=== PATIENT | male | born 1965 | race Caucasian/White ===

== ENCOUNTER 2019-10-08 23:01 | Observation (INO) | payer OTHER ==
[~2019-10-08] VITALS: Ht 177.8 cm; Wt 115.4 kg
[~2019-10-08 23:01] MED LIST: ACET325 PO; AMLO10; AMLO5 PO; ASPI81CH PO; Bactrim Ds Tab1 EACH PO; CEPH500 PO; CITA20 PO; CQ-10; CYCL10 PO; Crutch1 EACH MISC; DOXE10; FERR325 PO; FOLI1 PO; GEMF600 PO; HYDCHL12.5 PO; HYDMOR2 PO; HYDR1TAB94 PO; Hydrochloroth12.5 MG PO; IBUP600 PO; LISI5; MINO50 PO; OXYACE5T PO; Prinivil10 MG PO; SINUS RINSE ST1 EACH; THIA100 PO; VARE1 PO; Zofran Odt4 MG SL
[2019-10-08] MEDS ORDERED: AMLO10 PO (23:20)
[2019-10-08] MEDS ORDERED: Catapres0.2 MG PO (23:20)
[2019-10-08] MEDS ORDERED: DOXA4 PO (23:21)
[2019-10-08] MEDS ORDERED: LISI20 PO (23:21)
[2019-10-08 23:24] LABS: BASOPHILS ABSOLUTE AUTO 0.07 K/mm3 (0.00-0.23); BASOPHILS PERCENT AUTO 1 % (0-2); EOSINOPHILS PERCENT AUTO 4 % (0-6); Hematocrit 47.8 % (37.0-53.0); Hemoglobin 16.1 g/dL (13.5-17.5); IMMATURE GRAN ABSOLUTE AUTO 0.03 K/mm3 (0.00-0.10); IMMATURE GRAN PERCENT AUTO 0 % (0-1); LYMPHOCYTES ABSOLUTE AUTO 2.09 K/mm3 (0.84-5.20); LYMPHOCYTES PERCENT AUTO 22 % (21-46); MONOCYTES ABSOLUTE AUTO 0.66 K/mm3 (0.16-1.47); MONOCYTES PERCENT AUTO 7 % (4-13); Mean Corpuscular HGB 29.4 pg (26.0-34.0); Mean Corpuscular HGB Conc 33.7 g/dL (31.5-36.5); Mean Corpuscular Volume 87 fL (80-100); NEUTROPHILS ABSOLUTE AUTO 6.48 K/mm3 (1.96-9.15); NEUTROPHILS PERCENT AUTO 67 % (41-73); Platelet Count 208 K/mm3 (150-400); RDW Coefficient Variation 13.3 % (11.7-14.2); RDW Standard Deviation 42.3 fL (35.1-46.3); Red Blood Cell Count 5.48 M/mm3 (4.30-5.90); White Blood Cell Count 9.73 K/mm3 (4.00-11.30)
[2019-10-08 23:58] LABS: Alanine Aminotransfer (ALT/SGP 32 U/L (12-78); Albumin, Blood 3.2 g/dL (3.4-5.0); Albumin/Globulin Ratio 0.8 (0.8-1.8); Alk Phos 97 U/L (50-136); Anion Gap 5 mmol/L (6-16); Aspartate Aminotrans (AST/SGOT 23 U/L (12-37); Bilirubin, Total 0.3 mg/dL (0.1-1.0); Blood Urea Nitrogen 23 mg/dL (8-24); CO2, Blood 30 mmol/L (21-32); Calcium, Blood 8.9 mg/dL (8.5-10.1); Chloride, Blood 106 mmol/L (98-108); Creatinine, Blood 1.44 mg/dL (0.60-1.20); Glomerular Filtration Rate 54 (60-); Glucose, Blood 118 mg/dL (70-99); Potassium, Blood 3.4 mmol/L (3.5-5.5); Sodium, Blood 141 mmol/L (136-145); Total Protein, Blood 7.2 g/dL (6.4-8.2); Troponin I <0.015 ng/mL (0.000-0.040)
--- NOTE | 2019-10-09 06:32 | NUR ---
PT ADMITTED TO ROOM 359 PER CART FROM ER; REPORT RECEIVED FROM [facility] VIA ER; PT ASSISTED INTO BED VIA SLIDER SHEET X 4 ASSIST. 0661 PT STOOD AT SIDE OF BED WITH THIS NURSE AT SIDE AND VOIDED 200ML CLEAR YELLOW FLUID; PT VOICED HAVING VERTIGO WHILE STANDING AT BEDSIDE; PTS BP HYPERTENSIVE LAYING AND SITTING.
[2019-10-09] MEDS ORDERED: SYMBICORT 16010.2 GM INH (10:47)
[2019-10-09] MEDS ORDERED: ALBU90OI INH (10:47)
[2019-10-09] MEDS ORDERED: Percocet 5-3251 EACH PO (10:48)
[2019-10-09] MEDS ORDERED: ONDA4ODT MM (10:48)
--- NOTE | 2019-10-09 16:25 | NUR ---
SHIFT SUMMARY NESTOR DENIED PAIN THIS SHIFT, BUT COMPLAINED OF LOTS OF DIZZINESS. ABLE TO GET TO BR WITH SBA. BA ON FOR SAFETY. PT SAW FOR JEEVAN MANEUVER, PT STILL DIZZY AFTERWARDS. VERY HTN AT BEGINNING OF SHIFT, AROUND 200/120 BP, WITH BP MEDS, IT DECREASED SIGNFICANTLY. GOT NAUSEA MEDS X1. TOOK MEDS PRESCRIBED. WCTM
--- NOTE | 2019-10-09 22:36 | NUR ---
1950 THIS NURSE REVIEWED AND EDUCATED PATIENT ON IMPORTANCE OF MEDICATION COMPLIANCE AND NEED TO TAKE MEDS ORDERED BY PCP IN FUTURE AND TO NOT JUST QUIT TAKING MEDS BECAUSE YOU PERSONALLY DON'T WANT TO TAKE THEM WITH ACKNOWLEDGEMENT NOTED.
--- NOTE | 2019-10-10 04:50 | NUR ---
SHIFT SUMMARY: 54 Y/O OBESE MALE RESTED COMFORTABLY IN BED; PT DENIES VERTIGO AND WAS ABLE AMBULATE BATHROOM AND BACK WITHOUT ISSUE X 1 STANDBY ASSIST; DENIES PAIN OR NAUSEA; VITAL SIGNS STABLE; THIS NURSE REVIEWED WITH PATIENT NEED TO BE COMPLIANT WITH TAKING HOME MEDS IN FUTURE; BED LOW POSITION WITH CALL LIGHT AT SIDE.
[2019-10-10 05:48] LABS: Bun/Creatinine Ratio 16.4 (12.0-20.0); Calcium, Blood 8.5 mg/dL (8.5-10.1); Creatinine, Blood 1.77 mg/dL (0.60-1.20); Potassium, Blood 3.7 mmol/L (3.5-5.5)
[2019-10-10] MEDS ORDERED: PROAIR DIGIHAL90 MCG INH (14:33)
[2019-10-10] MEDS ORDERED: SYMBICORT 160-4.6 GM INH (14:34)
[2019-10-10] MEDS ORDERED: Percocet 5-3251 EACH PO (14:34)
[2019-10-10] MEDS ORDERED: HYDCHL25 PO (14:34)
[2019-10-10] MEDS ORDERED: MECL25 PO (14:34)
--- NOTE | 2019-10-10 14:44 | NUR ---
Advance Directive Education conducted. Patient already has the AD form so I just talk with patient about the purpose and importance of the AD. I also explain the filing process. Patient tells me he will look over the information with his girlfriend when they return home.
--- NOTE | 2019-10-10 16:00 | NUR ---
PATIENT DISCHARGED TO HOME VIA TAXI FROM [facility]. FOUR WHEEL W[employer]ER DELIVERED TO ROOM BY [facility] PRIOR TO D/C. IV SL REMOVED WITHOUT INCIDENT. PATIENT AWARE THAT HE HAS 5 NEW MEDICATIONS TO BE PICKED UP AT PHARMACY. DENIED DIZZINESS. HAS ALL BELONGINGS.
== END 2019-10-10 15:52 | disposition home or self-care (01) ==
LOC: ER 23:01 → MEDS 23:02
PROVIDERS: Emergency Medicine; Internal Medicine; ADMIT Internal Medicine
DX: R42 Dizziness and giddiness (principal); I12.9 Hypertensive chronic kidney disease with stage 1 through stage 4 chronic kidney disease, or unspecified chronic kidney disease; N18.3 Chronic kidney disease, stage 3 (moderate); H81.10 Benign paroxysmal vertigo, unspecified ear; F32.9 Major depressive disorder, single episode, unspecified; F17.210 Nicotine dependence, cigarettes, uncomplicated; Z91.14 Patient's other noncompliance with medication regimen; Z79.899 Other long term (current) drug therapy
CPT/HCPCS: 36415; 70450; 80048; 80053; 84484; 85025; 93005; 93010; 96361; 96374; 96375; 96376; 97161; 99285-25; A9270; A9270-GY; G0378; J2405; J3360; J7030

== ENCOUNTER → 2020-09-15 | Outpatient (CLI) | payer OTHER | END | disposition home or self-care (01) | LOC: LAB 13:59 | DX: R60.0 Localized edema (principal) ==

== ENCOUNTER 2021-12-13 22:28 | Emergency (ER) | payer OTHER ==
[~2021-12-13] VITALS: Ht 177.8 cm; Wt 113.4 kg
[~2021-12-13 22:28] MED LIST changes: +ALBU90OI INH; +AMLO10 PO; +Catapres0.2 MG PO; +DOXA4 PO; +HYDCHL25 PO; +LISI20 PO; +MECL25 PO; +ONDA4ODT MM; +PROAIR DIGIHAL90 MCG INH; +Percocet 5-3251 EACH PO; +SYMBICORT 160-4.6 GM INH; +SYMBICORT 16010.2 GM INH
[2021-12-13 22:59] LABS: BASOPHILS ABSOLUTE AUTO 0.06 K/mm3 (0.00-0.23); BASOPHILS PERCENT AUTO 1 % (0-2); EOSINOPHILS PERCENT AUTO 4 % (0-6); Hematocrit 46.2 % (37.0-53.0); Hemoglobin 15.5 g/dL (13.5-17.5); IMMATURE GRAN ABSOLUTE AUTO 0.04 K/mm3 (0.00-0.10); IMMATURE GRAN PERCENT AUTO 1 % (0-1); LYMPHOCYTES ABSOLUTE AUTO 1.92 K/mm3 (0.84-5.20); LYMPHOCYTES PERCENT AUTO 22 % (21-46); MONOCYTES PERCENT AUTO 9 % (4-13); Mean Corpuscular HGB 29.4 pg (26.0-34.0); Mean Corpuscular HGB Conc 33.5 g/dL (31.5-36.5); Mean Corpuscular Volume 88 fL (80-100); Mean Platelet Volume 10.4 fL (9.1-12.4); NEUTROPHILS ABSOLUTE AUTO 5.48 K/mm3 (1.96-9.15); NEUTROPHILS PERCENT AUTO 64 % (41-73); Platelet Count 222 K/mm3 (150-400); RDW Coefficient Variation 13.2 % (11.7-14.2); RDW Standard Deviation 42.5 fL (35.1-46.3); Red Blood Cell Count 5.28 M/mm3 (4.30-5.90)
[2021-12-13 23:28] LABS: Albumin, Blood 3.5 g/dL (3.4-5.0); Albumin/Globulin Ratio 0.9 (0.8-1.8); Bilirubin, Total 0.3 mg/dL (0.1-1.0); Bun/Creatinine Ratio 18.1 (12.0-20.0); Calcium, Blood 9.6 mg/dL (8.5-10.1); Creatinine, Blood 1.71 mg/dL (0.60-1.20); Globulin, Blood 3.9 g/dL (2.2-4.0); Potassium, Blood 4.1 mmol/L (3.5-5.5); Total Protein, Blood 7.4 g/dL (6.4-8.2)
== END 2021-12-14 01:36 | disposition home or self-care (01) ==
LOC: ER 22:28
PROVIDERS: Student in an Organized Health Care Education/Training Program
DX: R07.9 Chest pain, unspecified (principal); I10 Essential (primary) hypertension; F17.210 Nicotine dependence, cigarettes, uncomplicated; Z79.899 Other long term (current) drug therapy; Z79.51 Long term (current) use of inhaled steroids
CPT/HCPCS: 36415; 71045; 80053; 83880; 84484; 85025; 93005; 93010; A9270

== ENCOUNTER → 2022-03-13 | Outpatient (CLI) | payer OTHER ==
[2022-03-13 10:33] LABS: BASOPHILS ABSOLUTE AUTO 0.04 K/mm3 (0.00-0.23); BASOPHILS PERCENT AUTO 1 % (0-2); EOSINOPHILS ABSOLUTE AUTO 0.27 K/mm3 (0.00-0.68); EOSINOPHILS PERCENT AUTO 3 % (0-6); Hematocrit 51.7 % (37.0-53.0); Hemoglobin 17.7 g/dL (13.5-17.5); IMMATURE GRAN ABSOLUTE AUTO 0.03 K/mm3 (0.00-0.10); IMMATURE GRAN PERCENT AUTO 0 % (0-1); LYMPHOCYTES ABSOLUTE AUTO 1.64 K/mm3 (0.84-5.20); LYMPHOCYTES PERCENT AUTO 20 % (21-46); MONOCYTES ABSOLUTE AUTO 0.59 K/mm3 (0.16-1.47); MONOCYTES PERCENT AUTO 7 % (4-13); Mean Corpuscular HGB 29.9 pg (26.0-34.0); Mean Corpuscular HGB Conc 34.2 g/dL (31.5-36.5); Mean Corpuscular Volume 87 fL (80-100); Mean Platelet Volume 10.2 fL (9.1-12.4); NEUTROPHILS ABSOLUTE AUTO 5.62 K/mm3 (1.96-9.15); NEUTROPHILS PERCENT AUTO 69 % (41-73); Platelet Count 198 K/mm3 (150-400); RDW Coefficient Variation 13.6 % (11.7-14.2); RDW Standard Deviation 43.2 fL (35.1-46.3); Red Blood Cell Count 5.92 M/mm3 (4.30-5.90); White Blood Cell Count 8.19 K/mm3 (4.00-11.30)
[2022-03-13 10:51] LABS: Albumin, Blood 3.2 g/dL (3.4-5.0); Albumin/Globulin Ratio 0.8 (0.8-1.8); Bilirubin, Total 0.3 mg/dL (0.1-1.0); Bun/Creatinine Ratio 15.2 (12.0-20.0); Calcium, Blood 8.7 mg/dL (8.5-10.1); Creatinine, Blood 1.58 mg/dL (0.60-1.20); Globulin, Blood 4.1 g/dL (2.2-4.0); Potassium, Blood 3.8 mmol/L (3.5-5.5); Total Protein, Blood 7.3 g/dL (6.4-8.2)
== END | disposition home or self-care (01) ==
LOC: LAB SHORT 10:29
PROVIDERS: Physician Assistant Medical
DX: R42 Dizziness and giddiness (principal)
CPT/HCPCS: 80053; 85025

== ENCOUNTER 2023-02-09 11:16 | Emergency (ER) | payer OTHER ==
[~2023-02-09] VITALS: Ht 180.3 cm; Wt 154.2 kg
[2023-02-09 11:49] VITALS: BP 174/112
[2023-02-09 12:20] LABS: BASOPHILS ABSOLUTE AUTO 0.06 K/mm3 (0.00-0.23); BASOPHILS PERCENT AUTO 1 % (0-2); EOSINOPHILS ABSOLUTE AUTO 0.33 K/mm3 (0.00-0.68); EOSINOPHILS PERCENT AUTO 4 % (0-6); Hematocrit 48.7 % (37.0-53.0); Hemoglobin 16.2 g/dL (13.5-17.5); IMMATURE GRAN ABSOLUTE AUTO 0.04 K/mm3 (0.00-0.10); IMMATURE GRAN PERCENT AUTO 0 % (0-1); LYMPHOCYTES ABSOLUTE AUTO 1.42 K/mm3 (0.84-5.20); LYMPHOCYTES PERCENT AUTO 15 % (21-46); MONOCYTES ABSOLUTE AUTO 0.54 K/mm3 (0.16-1.47); MONOCYTES PERCENT AUTO 6 % (4-13); Mean Corpuscular HGB 29.1 pg (26.0-34.0); Mean Corpuscular HGB Conc 33.3 g/dL (31.5-36.5); Mean Corpuscular Volume 88 fL (80-100); Mean Platelet Volume 10.1 fL (9.1-12.4); NEUTROPHILS ABSOLUTE AUTO 6.85 K/mm3 (1.96-9.15); NEUTROPHILS PERCENT AUTO 74 % (41-73); Platelet Count 196 K/mm3 (150-400); RDW Coefficient Variation 13.9 % (11.7-14.2); RDW Standard Deviation 43.9 fL (35.1-46.3); Red Blood Cell Count 5.56 M/mm3 (4.30-5.90); White Blood Cell Count 9.24 K/mm3 (4.00-11.30)
[2023-02-09 12:35] LABS: Albumin, Blood 3.1 g/dL (3.4-5.0); Albumin/Globulin Ratio 0.7 (0.8-1.8); Bilirubin, Total 0.5 mg/dL (0.1-1.0); Bun/Creatinine Ratio 13.7 (12.0-20.0); C-REACTIVE PROTEIN, EXT RANGE 3.18 mg/dL (0.000-0.300); Calcium, Blood 9.3 mg/dL (8.5-10.1); Creatinine, Blood 1.46 mg/dL (0.60-1.20); Globulin, Blood 4.3 g/dL (2.2-4.0); Potassium, Blood 3.4 mmol/L (3.5-5.5); Total Protein, Blood 7.4 g/dL (6.4-8.2)
[2023-02-09] MEDS ORDERED: SULTRIDS PO (13:40)
== END 2023-02-09 13:57 | disposition home or self-care (01) ==
LOC: ER 11:16
PROVIDERS: Physician Assistant
DX: L03.115 Cellulitis of right lower limb (principal); I10 Essential (primary) hypertension; E87.6 Hypokalemia; M71.21 Synovial cyst of popliteal space [Baker], right knee; M71.22 Synovial cyst of popliteal space [Baker], left knee; F17.210 Nicotine dependence, cigarettes, uncomplicated; Z79.899 Other long term (current) drug therapy; Z79.51 Long term (current) use of inhaled steroids
CPT/HCPCS: 80053; 85025; 86140; 93971; 99284-25

== ENCOUNTER → 2023-09-20 | Outpatient (CLI) | payer OTHER ==
[~2023-09-20] MED LIST changes: +SULTRIDS PO
[2023-09-20 12:01] LABS: BASOPHILS ABSOLUTE AUTO 0.07 K/mm3 (0.00-0.23); BASOPHILS PERCENT AUTO 1 % (0-2); EOSINOPHILS PERCENT AUTO 5 % (0-6); Hematocrit 50.9 % (37.0-53.0); Hemoglobin 17.2 g/dL (13.5-17.5); IMMATURE GRAN ABSOLUTE AUTO 0.05 K/mm3 (0.00-0.10); IMMATURE GRAN PERCENT AUTO 1 % (0-1); LYMPHOCYTES ABSOLUTE AUTO 1.32 K/mm3 (0.84-5.20); LYMPHOCYTES PERCENT AUTO 14 % (21-46); MONOCYTES ABSOLUTE AUTO 0.44 K/mm3 (0.16-1.47); MONOCYTES PERCENT AUTO 5 % (4-13); Mean Corpuscular HGB 29.5 pg (26.0-34.0); Mean Corpuscular HGB Conc 33.8 g/dL (31.5-36.5); Mean Corpuscular Volume 87 fL (80-100); Mean Platelet Volume 10.3 fL (9.1-12.4); NEUTROPHILS ABSOLUTE AUTO 7.08 K/mm3 (1.96-9.15); NEUTROPHILS PERCENT AUTO 75 % (41-73); Platelet Count 223 K/mm3 (150-400); RDW Coefficient Variation 14.2 % (11.7-14.2); RDW Standard Deviation 44.7 fL (35.1-46.3); Red Blood Cell Count 5.84 M/mm3 (4.30-5.90); White Blood Cell Count 9.46 K/mm3 (4.00-11.30)
[2023-09-20 12:10] LABS: Albumin, Blood 3.2 g/dL (3.4-5.0); Albumin/Globulin Ratio 0.7 (0.8-1.8); Bilirubin, Total 0.4 mg/dL (0.1-1.0); Bun/Creatinine Ratio 15.4 (12.0-20.0); Calcium, Blood 9.6 mg/dL (8.5-10.1); Creatinine, Blood 1.75 mg/dL (0.60-1.20); Globulin, Blood 4.8 g/dL (2.2-4.0); Potassium, Blood 3.8 mmol/L (3.5-5.5); Uric Acid, Blood 10.3 mg/dL (3.5-7.2)
== END | disposition home or self-care (01) ==
LOC: LAB SHORT 11:52 → LAB 11:52
PROVIDERS: Internal Medicine
DX: I10 Essential (primary) hypertension (principal)
CPT/HCPCS: 80053; 84550; 85025; 85651; 86140

== ENCOUNTER 2025-02-09 13:38 | Emergency (ER) | payer SELFPAY ==
[~2025-02-09] VITALS: Ht 177.8 cm; Wt 124.7 kg
[2025-02-09 13:43] VITALS: BP 223/126
== END 2025-02-09 15:42 | disposition left against medical advice (07) ==
LOC: ER 13:38
DX: S09.90XA Unspecified injury of head, initial encounter (principal); W19.XXXA Unspecified fall, initial encounter; I10 Essential (primary) hypertension; Z53.21 Procedure and treatment not carried out due to patient leaving prior to being seen by health care provider
CPT/HCPCS: 70450